=== PATIENT | female | born 1970 | race Caucasian/White ===

== ENCOUNTER → 2023-08-05 15:02 | Outpatient (REF) | payer OTHER, SELFPAY | LOC: WDC 15:02 | PROVIDERS: ATTENDING PHYSICIAN Internal Medicine | DX: R92.2 Inconclusive mammogram (principal) | CPT/HCPCS: 76641 ==

== ENCOUNTER → 2023-10-14 08:58 | Outpatient (REF) | payer OTHER, SELFPAY | LOC: WDC 08:58 | PROVIDERS: ATTENDING PHYSICIAN Family Medicine; FAMILY PHYSICIAN Family Medicine | DX: N63.22 Unspecified lump in the left breast, upper inner quadrant (principal) | CPT/HCPCS: 76642; 77061; 77065 ==

== ENCOUNTER → 2023-10-20 06:28 | Outpatient (REF) | payer OTHER, SELFPAY ==
--- NOTE | 2023-10-20 09:28 | OID.BR.INTR ---
[facility] Breast Navigator - Initial
- -
Date of Contact: 10/20/23
Met with patient. Patient given written information on navigator services and support services available at [facility]. Will follow up as needed per protocol.
== END ==
LOC: WDC 06:28
PROVIDERS: ATTENDING PHYSICIAN Family Medicine; FAMILY PHYSICIAN Family Medicine
DX: R92.1 Mammographic calcification found on diagnostic imaging of breast (principal)
CPT/HCPCS: 88305; 19081; 19082; 76098; 88341; 88342; 88360; A4648

== ENCOUNTER → 2023-11-04 09:37 | Outpatient (REF) | payer OTHER, SELFPAY | LOC: WDC 09:37 | PROVIDERS: ATTENDING PHYSICIAN Surgery; FAMILY PHYSICIAN Family Medicine | DX: R92.1 Mammographic calcification found on diagnostic imaging of breast (principal) | CPT/HCPCS: 76642; 77061; 77065 ==

== ENCOUNTER → 2023-11-05 16:27 | Outpatient (REF) | payer OTHER, SELFPAY | LOC: MRI 3T 16:27 | PROVIDERS: ATTENDING PHYSICIAN Surgery Surgical Oncology; FAMILY PHYSICIAN Family Medicine | DX: D05.12 Intraductal carcinoma in situ of left breast (principal) | CPT/HCPCS: 77049; A9585 ==

== ENCOUNTER → 2025-05-02 09:07 | Outpatient (REF) | payer SELFPAY | LOC: HWRAD 09:07 | PROVIDERS: ATTENDING PHYSICIAN Family Medicine | DX: E78.5 Hyperlipidemia, unspecified (principal) | CPT/HCPCS: 75571 ==